=== PATIENT | female | born 1935 | race Caucasian/White ===

== ENCOUNTER 2024-03-22 17:03 | Emergency (ER) | payer MEDICARE, OTHER, SELFPAY ==
[2024-03-22] VITALS (7 sets, daily range): BP systolic 92–118; BP diastolic 45–60; BMI 28.1
[2024-03-22 18:12] LABS: % Basophils 0.5 % (0-2); % Eosinophils 2.4 % (0-6); % Immature Granulocytes 0.3 % (0-0.5); % Lymphocytes 32.7 % (20.5-51.1); % Monocytes 12.2 % (1.7-9.3); % Neutrophils 51.9 % (42.2-75.2); Absolute Eosinophils 0.2 10^3/uL (0-0.7); Absolute Lymphocytes 2.2 10^3/uL (1.2-3.4); Absolute Monocytes 0.8 10^3/uL (0.1-0.6); Absolute Neutrophils 3.4 10^3/uL (1.4-6.5); Hematocrit 42.1 % (37.0-47.0); Hemoglobin 14.2 g/dL (12.0-16.0); Mean Corp Hgb Conc. 33.7 g/dL (33.0-37.0); Mean Corpuscular Hgb 29.8 pg (27.0-31.0); Mean Corpuscular Volume 88.4 fL (81.0-99.0); Mean Platelet Volume 10.6 fL (7.4-10.4); Nucleated Red Blood Cells % 0 %; Platelet Count 216 10^3/uL (130-400); Red Blood Cell Count 4.76 10^6/uL (4.20-5.40); Red Cell Dist. Width 13.9 % (11.5-14.5); White Blood Cell Count 6.6 10^3/uL (4.8-10.8)
[2024-03-22 18:33] LABS: ALT (SGPT) 17 U/L (0-35); AST (SGOT) 24 U/L (14-36); Albumin 4.2 g/dl (3.5-5.0); Alkaline Phosphatase 59 U/L (38-126); Blood Urea Nitrogen 18 mg/dl (7-17); Calcium 9.9 mg/dl (8.4-10.2); Carbon Dioxide 30 mmol/L (22-30); Chloride 103 mmol/L (98-107); Glucose 133 mg/dl (70-99); Potassium 3.6 mmol/L (3.5-5.1); Sodium 141 mmol/L (135-145); Total Bilirubin 0.5 mg/dl (0.2-1.3); Total Protein 6.9 g/dl (6.3-8.2); eGFR 48.63
[2024-03-22 18:35] LABS: Troponin I < 0.012 ng/ml
[2024-03-22] MEDS: LOW STRENGTH ASPIRIN 81 MG PO (19:02)
[2024-03-22] MEDS: NSS 500 IV (19:04)
--- NOTE | 2024-03-22 19:14 | ED.GENMED ---
History of Present Illness
General
Chief Complaint: Chest Pain
Source: patient
Exam Limitations: none
Time Seen by Provider: 03/22/24 18:23
Nursing documentation reviewed up to this point in time: agreed with
History of Present Illness
History of Present Illness:
pt is a 88 y/o F
was upstairs visiting her who had surgery this morning and is ICU
here with chest pain that started around 430 pm today that felt like a dull 3/10 achein the center of her chest
she says that she thought maybe the hoagie she ate was causing her some indigestion but she didn't have the burning pain like heart burn. pt says she didn't say anything about her pain initially but then she told her daughter who brought her to the
ER
pt says the pain lasted about 30 minutes and spontaneously resolved
she never felt sob, nauseated, vomiting, fever, cough, painful breathing, exertional symptoms
she has had a long day, was in the ER overnight and didn't sleep well at home and then didn't eat until late, missed her nap etc.
she has no heart disease but has had pacer, is on eliquis
afib
Past History
Past History
ED Past Medical History: Arrthythmia (afib)
ED Past Surgical History: Cardiac (pacer)
Social History
Tobacco: Non-smoker
Review of Systems
Review of Systems
Allergies reviewed?: Yes
All Other Systems: Not applicable
Phy Exam
Physical Exam
Physical Exam:
GENERAL: Alert , in no apparent distress
EYE: pupils equal and reactive
NECK: Supple
ENT: o/p clr, mmm.
CARDIAC: Regular rate and rhythm .
LUNGS: Clear breath sounds bilaterally, no acute respiratory distress, no wheezes/rales/rhonchi
ABDOMEN: Soft, without focal tenderness, no r/g, no cvat, normal bowel sounds
NEUROLOGICAL: Alert and oriented, no focal neuro deficits
SKIN: Warm and dry, skin intact.
MUSCULOSKELETAL: No edema, well perfused. neg amado's sign
PSYCH: Normal and appropriate interaction.
Scores
Heart Score for Chest Pain Patients
STEMI patient?: No
History: Slightly or Non-Suspicious
ECG: Nonspecific Repolarization
Age: >/= 65 years
Risk Factors: 1 or 2 Risk Factors
Troponin: </= Normal Limit
Heart Score for Chest Pain Patients: 4
Heart Score Risk: 20.3% MACE over next 6 weeks
Course
Orders/Labs/Results
Orders:
Orders
03/22/24 17:05
ECG [Electrocardiogram (*1)] Urgent
Reason for Study: Chest Pain
EKG- Treatment ONCE
03/22/24 18:01
CBC/With Diff [Complete Blood Count/With Diff] Urgent
CMP [Comprehensive Metabolic Panel] Urgent
Lipase Urgent
Comment: ADD ON
Troponin I Urgent
03/22/24 18:51
CR Chest - 2 Views Urgent
Comment:
Reason For Exam: ches pain
03/22/24 18:52
Add On- LAB Urgent
Tests Added?: lipase
0.9% Sodium Chloride 500 ml [Nss] 500 ml IV BOLUS
Aspirin Chewable [Low Strength Aspirin] 81 mg PO NOW STA
03/22/24 21:53
Troponin I Urgent
Abnormal Lab Results
03/22/24
18:01
MPV 10.6 H fL
(7.4-10.4)
Absolute Monos (auto) 0.8 H 10^3/uL
(0.1-0.6)
Monocytes % 12.2 H %
(1.7-9.3)
BUN 18 H mg/dl
(7-17)
Creatinine 1.1 H mg/dL
(0.6-1.0)
Glucose 133 H mg/dl
(70-99)
03/22/24 18:01
03/22/24 18:01
Vital Signs
Initial and Last Documented VS:
Initial Vital Signs
Temp Pulse Resp BP Pulse Ox
97.5 F 75 20 109/60 98
03/22/24 17:09 03/22/24 17:09 03/22/24 17:09 03/22/24 17:09 03/22/24 17:09
Last Documented Vital Signs
Temp Pulse Resp BP Pulse Ox
97.5 F 67 16 114/55 93
03/22/24 17:09 03/22/24 22:45 03/22/24 22:45 03/22/24 22:00 03/22/24 22:45
MDM/Problems Addressed
Differential Diagnosis Includes:
acs, afib, gerd anxiety
MDM/Problems Addressed:
88 y/o F
h/o afib s/p pacer
on eliquis
here with chest pain dull ache lasting about 30 min-1 hour today
now resolved
no sob
never felt heart racing
wants to go home but agrees to be evaluated for r/o ACS
pt's ekg paced, 70s
1st trop neg
lipase normal
lfts normal
continues to remain pain free
5 hour trop for 930 pm
also interrogated the pacer and we received a verbal report from [facility]
that between 3:50-5 pm today she had run of afib/aflutter 90s-140s
has antonio dsimilar episode in december that lasted 4 hours and broke
d/w ed attending
will d/c home, no signs of failure
f/u with outpatient cards, not through [place]
anticoagulated
2nd trop neg.
*Critical Care Note
Total Time (30-74mins, 75-104mins- exclusive of procedures): Not Applicable
ED Attending Note
-
Portions of this chart may have been created with voice recognition software.� Occasional wrong word or��sound alike� substitutions may have occurred due to the inherent limitations of voice recognition software.
Discharge Plan
Departure
Patient Disposition: Home (Routine Discharge)
Date of Disposition: 03/22/24
Time of Disposition: 22:36
Patient with high blood pressure during this ER visit?: No
Condition: Fair
Covid-19: Not Applicable
Discharge Problem:
Chest pain, Atrial fibrillation
Instructions: Chest Pain NON-[facility] [place] [facility] Follow Up
Referrals:
Chey Castle, DO [Family Provider] - Follow up in 5-7 days
Activity Restrictions/Additional Instructions:
YOUR CHEST PAIN DOES NOT SEEM TO BE CAUSED BY AN EMERGENCY
YOUR PACER SHOWED THAT YOU HAD EPISODE OF ATRIAL FIB/FLUTTER WHEN YOUR PAIN WAS PRESENT
IT RESOLVED
YOU SHOULD CALL YOUR NURSING ASSISTANT TOMORROW
YOU HAD NO SIGNS OF HEART ATTACK
RETURN FOR: PASSING OUT, SEVERE PAIN, SHORTNESS OF BREATH OR ANY CONCERNS.
Interventions
Interventions:
*Risk Screen - Suicide Last Done: 03/22/24 18:21
*General Assessment Last Done: 03/22/24 18:21
*Nursing Disposition Last Done: 03/22/24 22:58
ED- Cardiac Assessment Last Done: 03/22/24 18:21
Discharge Date and Time
Discharge Date/Time: 03/22/24 23:04
Print Language: GREENLANDIC
[2024-03-22 19:23] LABS: Lipase 89 U/L (23-300)
[2024-03-22 22:25] LABS: Troponin I < 0.012 ng/ml
== END 2024-03-22 23:04 | disposition home or self-care (01) ==
LOC: EMR 17:03
PROVIDERS: Emergency Medicine; Physician Assistant; EMERGENCY PHYSICIAN Emergency Medicine; FAMILY PHYSICIAN Family Medicine
DX: R07.89 Other chest pain (principal); I48.91 Unspecified atrial fibrillation; Z79.01 Long term (current) use of anticoagulants; Z95.0 Presence of cardiac pacemaker
CPT/HCPCS: 99283; 71046; 80053; 83690; 84484; 85025; 93005